=== PATIENT | male | born 1945 | race Hispanic/Latino ===

== ENCOUNTER 2017-01-11 11:57 | Outpatient (CLI) | payer MEDICARE, OTHER ==
--- NOTE | 2017-01-11 15:33 | XRay Report ---
Left hip 2 views: History: Left hip pain. Findings: No bony or articular abnormality. No fracture dislocation or soft tissue calcification. Faint sclerotic areas at the greater trochanter may related to old injury. Impression: No acute findings.
== END 2017-01-11 11:58 | disposition home or self-care (01) ==
LOC: SPVIMAG 11:57
PROVIDERS: ATTEND Internal Medicine
DX: M25.552 Pain in left hip (principal)